=== PATIENT | male | born 1960 | race Caucasian/White ===

== ENCOUNTER 2019-11-26 17:26 | Observation (INO) | payer BC, SELFPAY ==
--- NOTE | ~2019-11-26 | CT_ITS ---
EXAMINATION: CT abdomen pelvis wo con EXAM DATE: 11/26/2019 18:05 INDICATION: Right lower quadrant pain. TECHNIQUE: Spiral CT of the abdomen and pelvis was performed without contrast. Axial, coronal and s agittal images were reviewed. The dose-length product (DLP) for this examination was 734.46 mGy-cm. The exposure was tailored according to patient size (auto mA exposure control), and iterative recons truction (ASIR) was used as additional dose reduction technique. Comparison is made to prior examinat ion from 04/13/2009. FINDINGS: The liver, spleen, adrenal glands and pancreas are unremarkable. Gallbladder is unremarkab le. No biliary obstruction. There is a 4 mm stone at the right ureterovesicular junction with mild h ydroureteronephrosis. There is perinephric fluid and fat stranding. Potentially could indicate calyce al rupture. No other genitourinary calcifications. There is moderate prostatomegaly. The bladder is unremarkable. There is no retroperitoneal or pelvic lymphadenopathy. Moderate sized right, small t o moderate-sized left inguinal fat-containing hernias. The appendix is normal. There is gastric cardial diverticulum. There is extensive sigmoid, moderate descending colonic diverticulosis. There is no adjacent inflammatory change to suggest diverticuliti s. No free intraperitoneal gas. The heart is normal in size. There are no pericardial or pleural effusions. The lung bases are unremarkable. There are no osteoblastic or osteolytic lesions identif ied. Mild to moderate chronic compression fracture superior endplate of L4. IMPRESSION: 1. Right UVJ 4 mm stone, mild hydronephrosis. Perinephric fluid could indicate calyceal rupture. 2. Inguinal fat-containing hernias. 3. Colonic diverticulosis. Reviewed, dictated and finalized at location A.
--- NOTE | ~2019-11-26 | XR_ITS ---
EXAMINATION: XR retrograde pyelo w/stent RT DATE: 11/27/2019 08:05 INDICATION: Right renal stone removal and retrograde ureteral stent placement. TECHNIQUE: 5 fluoroscopic spot images of the abdomen and pelvis were obtained during procedure perfor med by Dr. Louise. Radiologist was not present for the imaging or procedure. The amount of fluoroscopy t hayley used during this procedure was 0.2 minutes. 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 Subsequent images demonstrate a wire advanced into the right renal collecting system and retrograde contrast injection into the right ureter and collecting syste m demonstrating mild right hydroureteronephrosis. Final images demonstrate advancement of a stent wit h proximal tip in the right renal pelvis and with distal loop in the bladder. The right ureteral ston e is not visualized on the final images and has likely been extracted. IMPRESSION: 1. Fluoroscopy utilized during reported right renal stone extraction and placement of a right interna l ureteral stent which is in expected position. See procedure note for further detail. Reviewed, dictated and finalized at location A. IMPRESSION: 1. Fluoroscopy utilized during reported right renal stone extraction and placem ent of a right internal ureteral stent which is in expected position. See proce dure note for further detail.
[2019-11-26 17:33] VITALS: BP 191/115; PULSE 69; RESP 20; TEMP 36.6; O2SAT 99
[2019-11-26 17:46] LABS: Basophils Percent Auto 0.2 % (0.2-1.2); Eosinophils Percent Auto 0.1 % (0-4.4); Hematocrit 45.3 % (42.0-52.0); Hemoglobin 15.8 g/dL (14.0-18.0); Immature Granulocyte Absolute 0.06 K/mm3 (0.00-0.031); Immature Granulocyte Percent A 0.4 % (0-0.5); Lymphocytes Absolute Auto 1.32 K/mm3 (0.9-3.2); Lymphocytes Percent Auto 8.2 % (18.3-44.2); Mean Corpuscular HGB Conc 34.9 g/dl (32-36); Mean Platelet Volume 10.1 fl (7.4-10.4); Monocytes Absolute Auto 0.8 K/mm3 (0.1-0.6); Monocytes Percent Auto 4.8 % (2.6-8.5); Neutrophils Percent Auto 86.3 % (45.5-73.1); Platelet Count Result 238 k/mm3 (150-375); Red Blood Count 5.27 M/mm3 (4.6-6.20); Red Cell Distribution Width 12.7 % (11.5-14.5); White Blood Count 16.2 K/mm3 (4.5-10.0)
[2019-11-26] MEDS: MORPHINE SULFATE 4 MG/ML INJ IV PUSH (17:49)
[2019-11-26] MEDS: ONDANSETRON INJ 4 MG/2 ML VIAL IV PUSH (17:49)
[2019-11-26] MEDS: SODIUM CHLORIDE 0.9% IV 1,000 ML 999 ML IV CONT (17:50)
--- NOTE | 2019-11-26 17:54 | ED.ABDPAIN ---
HPI - Abdominal Pain General Chief Complaint: Abdominal Pain Stated Complaint: ABD PAIN X TD Time Seen by Provider: 11/26/19 17:41 History of Present Illness HPI narrative: Patient is a 59-year-old male who presents ER with sudden onset right sided abdominal pain. Began 2 hours prior to arrival. Sharp and radiating into his groin. Associated with urinary frequency and urgency. No hematuria dysuria. No history of AAA/kidney stones/gallstones. No nausea but no vomiting. No aggravating or alleviating factors. Related Data Home Medications Medication Instructions Recorded Confirmed No Home Medications 11/26/19 11/26/19 Allergies Allergy/AdvReac Type Severity Reaction Status Date / Time diclofenac AdvReac Mild stomach Verified 11/26/19 17:39 upset Review of Systems Review of Systems: All systems reviewed & are unremarkable except as noted in HPI and below Constitutional: Constitutional: Denies chills, Denies fever(s) and Denies weakness ENT: Denies nasal congestion and Denies sore throat Cardiovascular: Cardiovascular: Denies chest pain and Denies radiating jaw, neck or arm pain Gastrointestinal: Gastrointestinal: Reports abdominal pain, Denies diarrhea, Denies nausea and Denies vomiting Genitourinary: Genitourinary: Denies hematuria, Denies oliguria, Denies dysuria and Reports urinary frequency PMF Past Medical History Medical History (Updated 11/26/19 @ 18:29 by Terrence Neal MD) Arthritis of lumbar spine Spinal stenosis, unspecified region other than cervical Surgical History Surgical History (Updated 11/26/19 @ 17:55 by Terrence Neal MD) History of back surgery Social History Social History Smoking status: Never smoker Alcohol intake: current Gender identity (if verbalized by the patient): Male Exam Narrative: Exam Narrative: GENERAL: Uncomfortable-appearing, well-nourished, and in moderate distress. HEAD: Normocephalic, atraumatic. ENT: Mucous membranes moist. CHEST: Clear to auscultation. No respiratory distress. HEART: Regular rate and rhythm. Normal peripheral pulses. ABDOMEN: Soft, tender palpation right upper and right lower quadrants, no pulsatile mass, nondistended, normal active bowel sounds. EXTREMITIES: Normal range of motion. No edema. SKIN: Warm, dry, no rash. NEURO: lert and oriented x3. Course Reevaluation(s) Reevaluation #1: Patient still having pain after morphine and is panting. Will give Toradol for pain control. Patient has been informed of results. Date: 11/26/19 Time: 18:30 Reevaluation #2: Admit to hospitalist. Spoke with Dr. Louise with urology. NPO, strain all urine, hydrate, pain control. Date: 11/26/19 Time: 19:11 Vital Signs Vital signs: Vital Signs Temperature 97.9 F 11/26/19 17:33 Pulse Rate 69 11/26/19 17:33 Respiratory Rate 20 11/26/19 17:33 Blood Pressure 191/115 H 11/26/19 17:33 Pulse Oximetry 99 11/26/19 17:33 Temperature 97.9 F 11/26/19 17:33 Pulse Rate 69 11/26/19 17:33 Respiratory Rate 20 11/26/19 17:33 Blood Pressure 191/115 H 11/26/19 17:33 Pulse Oximetry 99 11/26/19 17:33 MDM - Abdominal Pain Lab Data Result diagrams: 11/26/19 17:40 11/26/19 17:40 Labs: Lab Results 11/26/19 11/26/19 11/26/19 Range/Units 17:40 17:40 18:48 WBC 16.2 H (4.5-10.0) K/mm3 RBC 5.27 (4.6-6.20) M/mm3 Hgb 15.8 (14.0-18.0) g/dL Hct 45.3 (42.0-52.0) % MCV 86.0 (80-100) fl MCH 30.0 (26-34) pg MCHC 34.9 (32-36) g/dl RDW 12.7 (11.5-14.5) % Plt Count 238 (150-375) k/mm3 MPV 10.1 (7.4-10.4) fl Immature Gran % (Auto) 0.4 (0-0.5) % Neut % (Auto) 86.3 H (45.5-73.1) % Lymph % (Auto) 8.2 L (18.3-44.2) % [place] % (Auto) 4.8 (2.6-8.5) % Eos % (Auto) 0.1 (0-4.4) % Baso % (Auto) 0.2 (0.2-1.2) % Lymph # (Auto) 1.32 (0.9-3.2) K/mm3 [place] # (
[2019-11-26 17:59] LABS: Alanine Aminotransferase 25 U/L (4-50); Albumin Level 4.7 g/dL (3.5-5.1); Alkaline Phosphatase 61 U/L (38-126); Anion Gap 10 mmol/L (8-16); Aspartate Amino Transferase 27 U/L (17-59); Bilirubin,Total 0.5 mg/dL (0.2-1.3); Blood Urea Nitrogen 22 mg/dL (9-20); Calcium 9.3 mg/dL (8.4-10.2); Carbon Dioxide 24 mmol/L (22-30); Chloride 104 mmol/L (98-107); Estimated CRCL calculation 57 ml/min; Estimated Glomerular Filt Rate 56; Glucose 134 mg/dL (75-110); Lipase 145 U/L (23-300); Potassium 3.9 mmol/L (3.4-5.0); Sodium 138 mmol/L (137-145)
[2019-11-26] MEDS: KETOROLAC 30 MG/ML VIAL (*BKC) IV PUSH (18:32)
[2019-11-26 18:59] LABS: Add Urine Microscopic? YES; Appearance Urine Clear (Clear); Bilirubin Urine Negative (Negative); Blood Urine 3+ (Negative); Color Urine Straw (Yellow); Glucose Urine UA Negative (Negative); Ketones Urine Trace mg/dL (Negative); Leukocyte Esterase Ur Negative LEU/UL (Negative); Mucus Urine Rare /lpf; Nitrate Urine Negative (Negative); Protein Urine Negative (Negative); Specific Grav Ur 1.014 (1.001-1.035); Urobilinogen Urine Negative mg/dL (<2.0); WBC Urine 0-3 /hpf
[2019-11-26 19:00] VITALS: BP 155/92; PULSE 77; RESP 19; O2SAT 99
[2019-11-26 20:16] VITALS: BP 166/91; PULSE 77; RESP 15; O2SAT 99
[2019-11-26 20:20] VITALS: BP 161/87; PULSE 72; RESP 16; TEMP 37; O2SAT 100; BMI 28.6
--- NOTE | 2019-11-26 20:41 | WPDURCON ---
Assessment and Plan Assessment and plan (1) Ureterolithiasis: Onset Date: ~11/26/19 Code(s): N20.1 - Calculus of ureter Status: Acute Assessment and Plan: Distal 4mm right UVJ stone, admitted for pain control, uninfected. PLAN: -Admitted to hospitalist for IVF, Pain control, straining of urine -Denies passage since admission -NPO at Midnight -Added on for OR today (11/27/2019) for Cystoscopy, Right retrograde pyelogram, ureteroscopy, holmium laser lithotripsy, ureteral stent (if does not pass stone before then) Urology Consult Note HPI Date Seen: 11/27/19 Requesting Physician: Angella Malcolm DO Primary Care Provider: Tano Schmitz MD Consult Narrative Narrative: Tano Khan is a 59 year old male who presented to the ER with a few hours of right flank pain. 01/27. No fevers. CT AP shows a single, 4mm, right distal ureteral stone. Cr 1.3, UA uninfected, WBC 16k. He is admitted for pain control. Review of Systems Review of Systems: All systems reviewed & are unremarkable except as noted in HPI and below PMFSH Past Medical History Medical History (Updated 11/27/19 @ 07:08 by Vikas Robles DO) Arthritis of lumbar spine Bilateral cataracts early/maturing cataracts Carpal tunnel syndrome, left Inguinal hernia bilateral fat containing inguinal hernias noted on imaging 11/26/2019 Renal stones Ureterolithiasis (~11/26/19) Surgical History Surgical History (Updated 11/27/19 @ 06:05 by Angella Malcolm DO) H/O cervical spine surgery C4 through C7 ACDF fall 2012 due to severe cervical stenosis from disc bulge at C4-C5 Family History Family History (Updated 11/27/19 @ 06:07 by Angella Malcolm DO) Mother Alzheimers disease Father Malignant neoplasm of prostate Social History Social History (Updated 11/27/19 @ 06:42 by Angella Malcolm DO) Social History: Primary care physician: Dr. Tano Schmitz Smoking status: Never smoker Alcohol intake: current Alcohol use details: the patient drinks 1 alcoholic beverage a month on average. Substance use: never Living arrangements: with family Additional living arrangements comments: He lives with his of 34 years. and 1 adult daughter who is scheduled to be admitted to deliver twins in a couple of days. 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 Gender identity (if verbalized by the patient): Male Spiritual care concerns: No Meds Home Medications and Allergies Home Medications Medication Instructions Recorded Confirmed Type No Home Medications 11/26/19 11/26/19 History Allergies Allergy/AdvReac Type Severity Reaction Status Date / Time diclofenac AdvReac Mild stomach Verified 11/26/19 17:39 upset Vital Signs Vital Signs - 24 hr 11/26/19 17:33 11/26/19 19:00 11/26/19 20:16 Temperature 36.6 C Pulse Rate 69 77 77 Respiratory Rate 20 19 15 Blood Pressure 191/115 H 155/92 H 166/91 H Pulse Oximetry 99 99 99 Exam Const: General: no acute distress Eyes: General: appearance normal, both eyes and all related structures Resp: Effort & Inspection: normal respiratory effort Cardio: Rate: regular rate Neuro: Speech: normal speech Extrem: General: normal to inspection Psych: Speech and movement: Normal speech and movement present Affect: normal affect Results Labs CBC & Chem 7: 11/26/19 17:40 11/26/19 17:40 Labs: Short CBC 11/26/19 Range/Units 17:40 WBC 16.2 H (4.5-10.0) K/mm3 Hgb 15.8 (14.0-18.0) g/dL Hct 45.3 (42.0-52.0) % Plt Count 238 (150-375) k/mm3 BMP 11/26/19 17:40 Sodium 138 Potassium 3.9 Chloride 104 Carbon Dioxide 24 BUN 22 H Creatinine 1.30 Glucose 134 H Calcium 9.3 Liver Function 11/26/19 Range/Units 17:40 Total Bilirubin
--- NOTE | 2019-11-26 22:29 | ADMGEN ---
This patient, Tano Khan, was admitted to 3 Med Surg Room 302-01. Patient/family oriented to hospital policies and general routines including ID bracelet, bed and alarms, visiting hours, pain management, procedures, bathroom and other care routines, personal items, smoking policy, room service/diet, and visiting hours. Valuables list has been completed. Information on how to activate the Rapid Response Team has been discussed. Patient/Family are encouraged to report perceived risks to care and to ask questions if they do not understand what they are told or what they should do.
[2019-11-26] MEDS: SODIUM CHLORIDE 0.9% IV 1,000 ML 125 ML IV CONT (22:55)
[2019-11-27] VITALS (9 sets, daily range): BP systolic 115–158; BP diastolic 66–97; PULSE 54–70; RESP 12–18; TEMP 36.2–37; O2SAT 98–100
--- NOTE | 2019-11-27 05:57 | PM.IMHP ---
H&P: HPI History of Present Illness Date/Time: 11/27/19 05:57 Chief complaint: ureterolithiasis Narrative: Tano Khan is a 59 year old male with a relatively unremarkable past medical history who presented to the ER with sudden onset of right-sided abdominal pain 2 hours prior to arrival. the pain was initially generalized across his abdomen but then became more isolated to the right side and radiated into his groin. The pain was initially 10/10 intensity. He received a dose of morphine in the ER without relief in his pain improved significantly after Toradol. He had increased urinary frequency and urgency. he was having some dysuria prior to midnight but this has since resolved. He denies having any hematuria. He had not noticed any eliciting or relieving factors. However he reports that his pain is improved significantly and is only very minor now. He has not had any fevers or chills. He denies any nausea or vomiting. He does not have a history of prior kidney stones. Review of Systems Review of Systems: Narrative: 10 systems were reviewed with pertinent positives and negatives per HPI. Except as documented in the HPI, all other systems were reviewed and are negative. [facility] Past Medical History Medical History (Updated 11/27/19 @ 06:37 by Angella Malcolm DO) Arthritis of lumbar spine Bilateral cataracts early/maturing cataracts Carpal tunnel syndrome, left Inguinal hernia bilateral fat containing inguinal hernias noted on imaging 11/26/2019 Ureterolithiasis (~11/26/19) Surgical History Surgical History (Updated 11/27/19 @ 06:05 by Angella Malcolm DO) H/O cervical spine surgery C4 through C7 ACDF fall 2012 due to severe cervical stenosis from disc bulge at C4-C5 Family History Family History (Updated 11/27/19 @ 06:07 by Angella Malcolm DO) Mother Alzheimers disease Father Malignant neoplasm of prostate Social History Social History (Updated 11/27/19 @ 06:42 by Angella Malcolm DO) Social History: Primary care physician: Dr. Tano Schmitz Smoking status: Never smoker Alcohol intake: current Alcohol use details: the patient drinks 1 alcoholic beverage a month on average. Substance use: never Living arrangements: with family Additional living arrangements comments: He lives with his of 34 years. and 1 adult daughter who is scheduled to be admitted to deliver twins in a couple of days. 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 Gender identity (if verbalized by the patient): Male Spiritual care concerns: No Meds Home Medications and Allergies Home Medications Medication Instructions Recorded Confirmed Type No Home Medications 11/26/19 11/26/19 History Allergies Allergy/AdvReac Type Severity Reaction Status Date / Time diclofenac AdvReac Mild stomach Verified 11/26/19 17:39 upset Vital Signs Vital Signs - 24 hr 11/26/19 17:33 11/26/19 19:00 11/26/19 20:16 Temperature 97.9 F Pulse Rate 69 77 77 Respiratory Rate 20 19 15 Blood Pressure 191/115 H 155/92 H 166/91 H Pulse Oximetry 99 99 99 11/26/19 20:20 Temperature 98.6 F Pulse Rate 72 Respiratory Rate 16 Blood Pressure 161/87 H Pulse Oximetry 100 Exam Narrative: Exam Narrative: PHYSICAL EXAM: WEIGHT 93.2 kg BMI 28.7 General: No acute distress, well-developed well-nourished, appears stated age HEENT: mucous membranes are moist, no oral pharyngeal erythema, no scleral icterus, pupils are equal and reactive Respiratory: clear to auscultation bilaterally, no increased work of breathing Cardiovascular: normal S1-S2, no murmurs, regular rate and rhythm Gastrointestinal: soft, nontender, nondistended, positive bowel sounds Skin: no jaundice, tanned Musculoskeletal: moves all extremities equally, no clubbing cyanosis or edema Neurolo
--- NOTE | 2019-11-27 07:08 | WPDANESEPPF ---
Anes - Initial Pre Proc Eval Procedure: Operation Date: 11/27/19 07:30 Proposed Procedures p Cysto, Right RPG, Ureteroscopy, Laser Lithotripsy, Stone Ext, Stent Placement - Trent Louise MD Date/Time: 11/27/19 07:08 Surgeon: Ange Erickson PA-C Pre Op Diagnosis: ureterolithiasis Patient Data Age: 59 Gender: M Height: 1.8 m Weight: 93.2 kg Last Vital Signs Temp 37.0 C 11/27/19 06:00 Pulse 66 11/27/19 06:00 Resp 16 11/27/19 06:00 BP 158/97 H 11/27/19 06:00 Pulse Ox 98 11/27/19 06:00 Allergies Allergy/AdvReac Type Severity Reaction Status Date / Time diclofenac AdvReac Mild stomach Verified 11/26/19 17:39 upset Home Medications Medication Instructions Recorded Confirmed Type No Home Medications 11/26/19 11/26/19 History Laboratory Tests 11/26/19 11/26/19 11/26/19 17:40 17:40 18:48 WBC 16.2 K/mm3 H K/mm3 (4.5-10.0) RBC 5.27 M/mm3 M/mm3 (4.6-6.20) Hgb 15.8 g/dL g/dL (14.0-18.0) Hct 45.3 % % (42.0-52.0) MCV 86.0 fl fl (80-100) MCH 30.0 pg pg (26-34) MCHC 34.9 g/dl g/dl (32-36) RDW 12.7 % % (11.5-14.5) Plt Count 238 k/mm3 k/mm3 (150-375) MPV 10.1 fl fl (7.4-10.4) Immature Gran % (Auto) 0.4 % % (0-0.5) Neut % (Auto) 86.3 % H % (45.5-73.1) Lymph % (Auto) 8.2 % L % (18.3-44.2) [place] % (Auto) 4.8 % % (2.6-8.5) Eos % (Auto) 0.1 % % (0-4.4) Baso % (Auto) 0.2 % % (0.2-1.2) Lymph # (Auto) 1.32 K/mm3 K/mm3 (0.9-3.2) [place] # (Auto) 0.8 K/mm3 H K/mm3 (0.1-0.6) Eos # (Auto) 0.0 K/mm3 K/mm3 (0-0.3) Baso # (Auto) 0.0 K/mm3 K/mm3 (0.0-0.1) Abs Immat Gran (auto) 0.06 K/mm3 H K/mm3 (0.00-0.031) Absolute Neuts (auto) 14.0 K/mm3 H K/mm3 (1.3-6.7) Absolute Nucleated RBC 0.0 K/mm3 K/mm3 (0.0-0.012) Nucleated RBC % 0.0 % % (0.0-0.2) Sodium 138 mmol/L mmol/L (137-145) Potassium 3.9 mmol/L mmol/L (3.4-5.0) Chloride 104 mmol/L mmol/L (98-107) Carbon Dioxide 24 mmol/L mmol/L (22-30) Anion Gap 10 mmol/L mmol/L (8-16) BUN 22 mg/dL H mg/dL (9-20) Creatinine 1.30 mg/dL mg/dL (0.7-1.3) Estim Creat Clear Calc 57 ml/min ml/min Estimated GFR 56 L (59 - ) Glucose 134 mg/dL H mg/dL (75-110) Calcium 9.3 mg/dL mg/dL (8.4-10.2) Total Bilirubin 0.5 mg/dL mg/dL (0.2-1.3) AST 27 U/L U/L (17-59) ALT 25 U/L U/L (4-50) Alkaline Phosphatase 61 U/L U/L (38-126) Total Protein 8.0 g/dL g/dL (6.3-8.2) Albumin 4.7 g/dL g/dL (3.5-5.1) Lipase 145 U/L U/L (23-300) Urine Color Straw (Yellow) Urine Appearance Clear (Clear) Urine pH 6.0 (5.0-9.0) Ur Specific [place] 1.014 (1.001-1.035) Urine Protein Negative mg/dL mg/dL (Negative) Urine Glucose (UA) Negative mg/dL mg/dL (Negative) Urine Ketones Trace mg/dL mg/dL (Negative) Ur Blood (Man) 3+ H (Negative) Urine Nitrate Negative (Negative) Urine Bilirubin Negative (Negative) Urine Urobilinogen Negative mg/dL mg/dL (<2.0) Leukocyte Esterase Rfl Negative MAREK/UL MAREK/UL (Negative) Urine RBC 11-20 /hpf H /hpf (0-2) Urine WBC 0-3 /hpf /hpf Urine Mucus Rare /lpf /lpf Patient hx anesthesia problems: none Family hx anesthesia problems: none [facility] Past Medical History Medical History (Updated 11/27/19 @ 07:08 by Vikas Robles DO) Arthritis of lumbar spine Bilateral cataracts early/maturing cataracts Carpal tunnel syndrome, left Inguinal hernia bilateral fat containing inguinal hernias noted on imagin
--- NOTE | 2019-11-27 07:25 | P.OP_ITS ---
Procedure Note - Detailed Date of procedure: 11/27/19 Pre-op diagnosis: ureterolithiasis Surgeon: PREOP DIAGNOSIS: N20.1 (Right ureteral calculus) POSTOP DIAGNOSIS: Same PROCEDURES PERFORMED: #1) Right ureteroscopy, basket extraction of stone #2) Cystoscopy, Right Ureteral Stent Placement, Retrograde Pyelogram #3) Radiologic supervision and interpretation OPERATIVE DETAILS: Prior to the operation and informed consent was obtained. The patient was brought back to the operative suite and a detail timeout was performed. General anesthesia was induced without complication. The patient was administered IV antibiotics in the prophylactic form. The patient was positioned in the dorsal lithotomy position with close attention to all pressure points and was prepped and draped in sterile fashion. We began the case using a rigid cystoscope to gain access into the bladder under direct visualization per urethra. Cystoscopy was unremarkable. We turned our attention to the right ureteral orifice and cannulated it using an 8/10 ureteral dilator and sensor wire. We radiologically confirmed the wire to pass up into the renal pelvis before advancing the ureteral dilator into the distal right ureter over our wire. Using a [place] semirigid ureteroscope I was able to traverse into the right ureter next to the wire and identified the stone. It was 4mm and distally located. The stone was identified and basket extracted using a zero-tipped nitinol basket. This was sent for chemical analysis. We performed a retrograde pyelogram through the scope to keep our wire in place. With our wire in place, we placed a 4.8Fr 22-30Fr double-J ureteral stent. We did not leave a string attached. We confirmed excellent position fluoroscopically. The patient's bladder was emptied at the conclusion of the case and they tolerated the procedure well. PLAN: -PACU, floor -Urology ok with d/c home today if cleared by hospitalist service -Urology Clinic will call to arrange office cystoscopy, stent removal, with one of my partners who has office hours at [place] This note was created with the assistance of voice-recognition software and may contain phonetic errors. Trent Louise MD
[2019-11-27 07:37] LABS: Hematocrit 42.4 % (42.0-52.0); Hemoglobin 14.6 g/dL (14.0-18.0); Mean Corpuscular HGB Conc 34.4 g/dl (32-36); Mean Corpuscular Hemoglobin 29.7 pg (26-34); Mean Corpuscular Volume 86.2 fl (80-100); Mean Platelet Volume 10.4 fl (7.4-10.4); Platelet Count Result 206 k/mm3 (150-375); Red Blood Count 4.92 M/mm3 (4.6-6.20); Red Cell Distribution Width 12.9 % (11.5-14.5); White Blood Count 10.5 K/mm3 (4.5-10.0)
[2019-11-27 07:49] LABS: Anion Gap 8 mmol/L (8-16); Blood Urea Nitrogen 17 mg/dL (9-20); Calcium 8.3 mg/dL (8.4-10.2); Carbon Dioxide 24 mmol/L (22-30); Chloride 106 mmol/L (98-107); Estimated CRCL calculation 53 ml/min; Estimated Glomerular Filt Rate 52; Glucose 102 mg/dL (75-110); Potassium 3.6 mmol/L (3.4-5.0); Sodium 138 mmol/L (137-145)
[2019-11-27] MEDS: ceFAZolin SODIUM 1 GM VIAL 2 GM IV PUSH (07:50)
[2019-11-27] MEDS: KETOROLAC 15 MG/ML VIAL (*BKC) IV PUSH (07:57)
[2019-11-27] MEDS: LACTATED RINGERS 1,000 ML 30 ML IV CONT (08:07)
--- NOTE | 2019-11-27 08:31 | PC.NURSE ---
To OR per bed, IV saline locked.
[2019-11-27] MEDS: LIDOCAINE HCL 2% GEL UROJET 10 ML PKG MUCOUS MEM (09:36)
--- NOTE | 2019-11-27 09:37 | PC.NURSE ---
Returned from OR per bed. Report received from Vikas.
[2019-11-27] MEDS: SODIUM CHLORIDE 0.9% IV 1,000 ML 125 ML IV CONT (10:47)
--- NOTE | 2019-11-27 11:55 | PM.DS ---
DS: Admitting Diagnosis Admitting Diagnosis Admitting Diagnosis: Calculus of ureter DS: Discharge Diagnosis Discharge Diagnosis (1) Ureterolithiasis: Onset Date: ~11/26/19 Code(s): N20.1 - Calculus of ureter Status: Acute Assessment and Plan: 4 mm obstructing stone with mild hydro nephrosis and perinephric fluid. Pt underwent cystoscopy and right urteral stent placement. after this procedure the patient had no pain and was ready for discharge. He is going to follow-up with urology to get the stent removed outpatient. No antibiotics were required, UA did not look suspicious for UTI and urology agreed. Patient educated about the worrisome signs and symptoms to come back to emergency room for was discharged in stable condition DS: Summary Hospital Course Reason for hospitalization: renal calculus Hospital Course: patient is 59-year-old male who presented emergency room for severe flank /abdominal pain found to have a right 4 mm kidney stone. He underwent a cystoscopy and stent placement and did well. Creatinine 1.4 at discharge and white blood cell count improved to 10.5. He was sent home with pain medications and tamsulosin. He is going to follow up with Urology outpatient Status at Discharge Functional status at discharge: independent ambulation Overall status at discharge: patient is back to baseline Time Spent with Patient Time attestation: Total time spent providing and/or coordinating discharge services: Time spent: Less than 30 minutes Specific discharge activities: 29 min Exam Narrative: Exam Narrative: General: Well developed well nourished patient in NAD HEENT: normocephalic Neck: supple Neuro: Alert and oriented x4 CV:RRR Resp:CTA Abd: Soft, non distended. No pain to palpation. Positive bowel sounds. no CVA tenderness Extremities: No swelling, erythema, or pain to palpation. DS: Data Data Completed and Pending Pending studies at discharge: Pending at discharge 11/27/19 07:53 Surgical [PTH] Routine Labs on day of discharge: Labs from last 24 hours 11/27/19 11/27/19 11/26/19 07:14 07:14 18:48 WBC 10.5 H RBC 4.92 Hgb 14.6 Hct 42.4 MCV 86.2 MCH 29.7 MCHC 34.4 RDW 12.9 Plt Count 206 MPV 10.4 Immature Gran % (Auto) Neut % (Auto) Lymph % (Auto) [place] % (Auto) Eos % (Auto) Baso % (Auto) Lymph # (Auto) [place] # (Auto) Eos # (Auto) Baso # (Auto) Abs Immat Gran (auto) Absolute Neuts (auto) Absolute Nucleated RBC Nucleated RBC % Sodium 138 Potassium 3.6 Chloride 106 Carbon Dioxide 24 Anion Gap 8 BUN 17 Creatinine 1.40 H Estim Creat Clear Calc 53 Estimated GFR 52 L Glucose 102 Calcium 8.3 L Total Bilirubin AST ALT Alkaline Phosphatase Total Protein Albumin Lipase Urine Color Straw Urine Appearance Clear Urine pH 6.0 Ur Specific [place] 1.014 Urine Protein Negative Urine Glucose (UA) Negative Urine Ketones Trace Ur Blood (Man) 3+ H Urine Nitrate Negative Urine Bilirubin Negative Urine Urobilinogen Negative Leukocyte Esterase Rfl Negative Urine RBC 11-20 H Urine WBC 0-3 Urine Mucus Rare 11/26/19 11/26/19 17:40 17:40 WBC 16.2 H RBC 5.27 Hgb 15.8 Hct 45.3 MCV 86.0 MCH 30.0 MCHC 34.9 RDW 12.7 Plt Count 238 MPV 10.1 Immature Gran % (Auto) 0.4 Neut % (Auto) 86.3 H Lymph % (Auto) 8.2 L [place] % (Auto) 4.8 Eos % (Auto) 0.1 Baso % (Auto) 0.2 Lymph # (Auto) 1.32 [place] # (Auto) 0.8 H Eos # (Auto) 0.0 Baso # (Auto) 0.0 Abs Immat Gran (auto) 0.06 H Absolute Neuts (auto) 14.0 H Absolute Nucleated RBC 0.0 Nucleated RBC % 0.0 Sodium 138 Potassium 3.9 Chloride 104 Carbon Dioxide 24 Anion Gap 10 BUN 22 H Creatinine 1.30 Estim Creat Clear Calc 57 Estimated GFR 56 L Glucose 134 H Calcium 9.3 Total Bilirubi
== END 2019-11-27 13:00 | disposition home or self-care (01) ==
LOC: ANHED 19:11 → ANH3MEDSUR 19:52
PROVIDERS: Physician Assistant; Urology; Admitting Provider Internal Medicine; Emergency Provider Emergency Medicine; PCP Family Medicine; Visit Provider Internal Medicine
PROC: (CPT 52352; principal; 2019-11-27 07:30)
DX: N20.1 Calculus of ureter (principal); K40.90 Unilateral inguinal hernia, without obstruction or gangrene, not specified as recurrent
CPT/HCPCS: 52332; 36415; 74176; 74420; 80048; 80053; 81001; 82365; 83690; 85025; 85027; 88300; 96361; 96365; 96375; 96376; 99285; A9270; C1769; C2617; G0378; J0131; J0690; J0696; J1100; J1885; J2250; J2270; J2405; J2704; J3010; J7030; J7120; Q9966

== ENCOUNTER 2021-02-27 08:58 | Outpatient (CLI) | payer BC, SELFPAY ==
[2021-02-27 09:40] VITALS: BP 147/84; PULSE 69; RESP 30; O2SAT 100
== END 2021-02-27 08:59 | disposition home or self-care (01) ==
PROVIDERS: PCP Family Medicine; Visit Provider Family Medicine
DX: C61 Malignant neoplasm of prostate (principal); Z01.818 Encounter for other preprocedural examination; I45.10 Unspecified right bundle-branch block
CPT/HCPCS: 99199

== ENCOUNTER 2021-02-27 09:54 | Emergency (ER) | payer BC, SELFPAY ==
--- NOTE | ~2021-02-27 | XR_ITS ---
EXAMINATION: XR chest 2V DATE: 02/27/2021 10:40 INDICATION: Transient alteration of awareness, history of bladder cancer TECHNIQUE: AP and lateral views of the chest are obtained. COMPARISON: 04/13/2009 FINDINGS: The lungs are free of acute opacities. There is no pleural effusion or pneumothorax. The ca rdiomediastinal silhouette is normal. There is moderate thoracic spondylosis. IMPRESSION: 1. No acute cardiopulmonary abnormality. Reviewed, dictated and finalized at location B. SONIC ENGINEER
--- NOTE | ~2021-02-27 | CT_ITS ---
EXAMINATION: CT brain wo con DATE: 02/27/2021 10:33 INDICATION: Syncope. TECHNIQUE: Computed tomography (CT) of the head was performed without intravenous contrast. The mA wa s adjusted according to patient size. Iterative reconstruction technique was employed. The dose-lengt h product was 605.33 mGy-cm. COMPARISON: Head CT 04/13/2009 FINDINGS: There is no intracranial hemorrhage, acute infarction, or abnormal intracranial mass lesion . The ventricles are normal in size. There is mild mucosal thickening in the paranasal sinuses. The m astoid air cells are normal. The orbits are normal. IMPRESSION: 1. Normal brain. Reviewed, dictated and finalized at location A. ING UP MAN IMPRESSION: 1. Normal brain.
[2021-02-27 09:59] VITALS: BP 124/80; PULSE 62; RESP 14; TEMP 36.6; O2SAT 100
--- NOTE | 2021-02-27 10:03 | ECG_ITS ---
Measurements Intervals [place] Rate: 58 P: 32 MI: 152 QRS: -58 QRSD: 109 T: 118 QT: 414 QTc: 407 Interpretive Statements SINUS BRADYCARDIA INCOMPLETE RIGHT BUNDLE BRANCH BLOCK LEFT ANTERIOR FASCICULAR BLOCK T WAVE ABNORMALITY IN LAT/HIGH LAT LEADS- CONSIDER ISCHEMIA BASELINE ARTIFACT- II, III, AVR, AVF, V3-V6 ABNORMAL ECG Electronically Signed On 02-27-2021 10:13:09 INDUSTRIAL AUTOMATION ENGINEER by Rishi Martinez D.O.
[2021-02-27 10:06] LABS: Glucose Point of Care 102 mg/dl (65-105)
--- NOTE | 2021-02-27 10:22 | ED.SYNCOPE ---
HPI - Syncope General Chief Complaint: Syncope <Ena Greenwood PA-C - Last Filed: 02/27/21 12:30> Stated Complaint: Syncope <PABLO Jones Last Filed: 02/27/21 12:30> Time Seen by Provider: 02/27/21 10:13 <PABLO Jones Last Filed: 02/27/21 12:30> Source: patient <PABLO Jones Last Filed: 02/27/21 12:30> Mode of arrival: wheelchair <PABLO Jones Last Filed: 02/27/21 12:30> Limitations: no limitations <PABLO Jones Last Filed: 02/27/21 12:30> History of Present Illness HPI narrative: This is a 60-year-old male that presents to the emergency department after syncopal episode today. Reports he has a prostatectomy scheduled for next Thursday due to localized prostate cancer. He failed the prescreening EKG so was scheduled for a Lexiscan stress test today. He had just had IV placed for this today. He started to feel very lightheaded and passed out. Reports he is unsure if he totally lost consciousness. Does report history of similar events in the past. Reports since he feels generally weak and has had intermittent paresthesias in his hands and feet. He did not hit his head. Denies fever, vision changes, vomiting, chest pain, shortness of breath, numbness, or weakness. <PABLO Jones Last Filed: 02/27/21 12:30> Related Data Home Medications: Home Medications Medication Instructions Recorded Confirmed No Home Medications 02/25/21 02/25/21 <PABLO Jones Last Filed: 02/27/21 12:30> Allergies/Adverse Reactions: Allergies Allergy/AdvReac Type Severity Reaction Status Date / Time diclofenac AdvReac Mild stomach Verified 02/25/21 11:39 upset <PABLO Jones Last Filed: 02/27/21 12:30> Review of Systems Review of Systems: CONSTITUTIONAL: Denies fever EYES: Denies visual changes CARDIOVASCULAR: Denies chest pain, or edema. RESPIRATORY: Denies dyspnea. GASTROINTESTINAL: Denies nausea, vomiting NEUROLOGIC: Denies headache, numbness, or weakness. <Ena Greenwood PA-C - Last Filed: 02/27/21 12:30> All systems reviewed & are unremarkable except as noted in HPI and below <Ena Greenwood PA-C - Last Filed: 02/27/21 12:30> [facility] Past Medical History Medical History: Medical History Arthritis of lumbar spine Bilateral cataracts early/maturing cataracts Bronchitis due to 2018-nCoV Carpal tunnel syndrome, left Inguinal hernia bilateral fat containing inguinal hernias noted on imaging 11/26/2019 Renal stones Ureterolithiasis (~11/26/19) <Ena Greenwood PA-C - Last Filed: 02/27/21 12:30> Surgical History Surgical History: Surgical History H/O cervical spine surgery C4 through C7 ACDF fall 2012 due to severe cervical stenosis from disc bulge at C4-C5 <Ena Greenwood PA-C - Last Filed: 02/27/21 12:30> Family History Family History: Family History Mother Alzheimers disease Father Malignant neoplasm of prostate <PABLO Jones Last Filed: 02/27/21 12:30> Social History Social History: Social History (Updated 02/25/21 @ 11:40 by TREMAYNE Garcia) Social History: Primary care physician: Dr. Tano Schmitz Alcohol intake: current Alcohol use details: the patient drinks 1 alcoholic beverage a month on average. Substance use: never Additional living arrangements comments: He lives with his of 34 years. and 1 adult daughter who is scheduled to be admitted to deliver twins in a couple of days. 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 Gender identity (if verbalized by the patient): Male Spiritual care concerns: No <Ena Greenwood PA-C - [place]
[2021-02-27 10:29] LABS: Basophils Absolute Auto 0.1 K/mm3 (0.0-0.1); Basophils Percent Auto 0.6 % (0.2-1.2); Eosinophils Absolute Auto 0.1 K/mm3 (0-0.3); Eosinophils Percent Auto 1.5 % (0-4.4); Hematocrit 44.7 % (42.0-52.0); Hemoglobin 15.8 g/dL (14.0-18.0); Immature Granulocyte Absolute 0.03 K/mm3 (0.00-0.031); Immature Granulocyte Percent A 0.4 % (0-0.5); Lymphocytes Absolute Auto 2.39 K/mm3 (0.9-3.2); Lymphocytes Percent Auto 29.6 % (18.3-44.2); Mean Corpuscular HGB Conc 35.3 g/dl (32-36); Mean Corpuscular Hemoglobin 30.3 pg (26-34); Mean Corpuscular Volume 85.6 fl (80-100); Monocytes Absolute Auto 0.9 K/mm3 (0.1-0.6); Monocytes Percent Auto 11.2 % (2.6-8.5); Neutrophils Absolute Auto 4.6 K/mm3 (1.3-6.7); Neutrophils Percent Auto 56.7 % (45.5-73.1); Platelet Count Result 215 k/mm3 (150-375); Red Blood Count 5.22 M/mm3 (4.6-6.20); Red Cell Distribution Width 12.7 % (11.5-14.5); White Blood Count 8.1 K/mm3 (4.5-10.0)
[2021-02-27] MEDS: SODIUM CHLORIDE 0.9% IV 1,000 ML 999 ML IV CONT (10:41)
[2021-02-27 10:42] LABS: Anion Gap 9 mmol/L (8-16); Blood Urea Nitrogen 19 mg/dL (9-20); Calcium 9.4 mg/dL (8.4-10.2); Carbon Dioxide 24 mmol/L (22-30); Chloride 104 mmol/L (98-107); Estimated CRCL calculation 72 ml/min; Estimated Glomerular Filt Rate > 60; Glucose 118 mg/dL (65-110); Potassium 4.1 mmol/L (3.4-5.0); Sodium 137 mmol/L (137-145)
[2021-02-27 10:57] LABS: Troponin I < 0.012 ng/mL (0.000-0.034)
[2021-02-27 11:11] LABS: INR 0.9; Partial Thromboplastin Time 22.8 SECONDS (22.3-36.8); Prothrombin Time 12.1 Seconds (11.1-14.7)
--- NOTE | 2021-02-27 11:21 | PC.NURSE ---
Pt received 1000 ml of normal saline, that was completed at 1121
[2021-02-27 11:45] VITALS: BP 130/76; PULSE 63
[2021-02-27 11:47] VITALS: BP 129/79; PULSE 63
[2021-02-27 11:49] VITALS: BP 125/86; PULSE 75
[2021-02-27 12:51] VITALS: BP 137/92; PULSE 70; RESP 16; O2SAT 96
--- NOTE | 2021-03-11 13:20 | PC.NURSE ---
LATE ENTRY This note is being entered to document information to the patient's record. The following information was omitted on [02/27/21], by [Sandrita Nicolas]. Ns stopped at 1140. 1000ml infused
== END 2021-02-27 12:54 | disposition home or self-care (01) ==
PROVIDERS: Physician Assistant; Emergency Provider Emergency Medicine; PCP Family Medicine
DX: R55 Syncope and collapse (principal); C61 Malignant neoplasm of prostate; H26.9 Unspecified cataract; Z86.16 Personal history of COVID-19; Z87.442 Personal history of urinary calculi; R00.1 Bradycardia, unspecified; I45.10 Unspecified right bundle-branch block; I45.2 Bifascicular block; R94.31 Abnormal electrocardiogram [ECG] [EKG]
CPT/HCPCS: 36415; 70450; 71046; 80048; 82948; 84484; 85025; 85610; 85730; 93005; 96360; 99284; J7030

== ENCOUNTER 2021-02-28 07:59 | Outpatient (CLI) | payer BC, SELFPAY ==
--- NOTE | 2021-02-28 | EST_ITS ---
Patient Info Name: Tano Khan Age: 60 years : 1960 Gender: Male Ht: 71 in Wt: 205 lbs BSA: 2.18 m2 HR: 56 bpm BP: 156 / 91 mmHg Heart Rhythm: Sinus Rhythm Exam Date: 02/28/2021 9:42 AM Exam Location: [facility] Stress Patient Status: Outpatient Admit Date: 02/28/2021 Staff Ordering Physician: Tano Schmitz MD Attending Provider: Tano Schmitz MD Exercise Technologist: Phyllis Merino CT Exercise Physician: Caitlyn Olmedo MD Exam Type: CA stress oscar w NM Study Info Indications Z01.810 - Encounter for preprocedural cardiovascular examination R94.31 - Abnormal electrocardiogram ECG EKG A regadenoson stress test was performed. Summary 1. No abnormal ST-T wave changes with lexiscan. 2. Nuclear test results to follow. Max Pred HR: 158 bpm Target HR: 134 bpm BP Response: Normal blood pressure response Termination Reason: Completed protocol Cardiac Symptoms: None Resting ECG Normal sinus rhythm.Left axis deviation. Resting ST/T wave changes. Stress ECG No abnormal ST/T wave changes with exercise. Arrhythmias None. Report Signatures
--- NOTE | ~2021-02-28 | NM_ITS ---
EXAMINATION: NM oscar stress w perfusion DATE: 02/28/2021 12:50 MANAGER SYSTEMS INDICATION: Right bundle branch block. Malignant neoplasm of the prostate. TECHNIQUE: Rest images were obtained following intravenous administration of mCi Tc99m tetrofosmin (M yoview). The patient was infused intravenously with Lexiscan (regadenoson). Then, mCi Tc99m tetrofosm in (Myoview) was administered intravenously, and stress images were obtained. Data was reconstructed into short axis and horizontal and vertical long axis SPECT images. Gated SPECT images were also obta ined. COMPARISON: None. FINDINGS: There is a small reversible defect of the lateral wall, consistent with impaired coronary f low reserve.. There is no segmental wall motion abnormality. Left ventricular ejection fraction mik sures 64%. IMPRESSION: 1. Small mild reversible perfusion abnormality of the lateral wall, consistent with impaired coronary flow reserve. 2. Normal left ventricular ejection fraction measuring 64%. Reviewed, dictated and finalized at location A. GER SYSTEMS
== END 2021-02-28 08:00 | disposition home or self-care (01) ==
LOC: ANHCARD 08:03
PROVIDERS: PCP Family Medicine; Visit Provider Family Medicine
DX: Z01.818 Encounter for other preprocedural examination (principal); C61 Malignant neoplasm of prostate; I45.10 Unspecified right bundle-branch block
CPT/HCPCS: 78452; 93017; A9502; J2785

== ENCOUNTER 2021-03-07 02:07 | Day surgery (SDC) | payer BC, SELFPAY ==
[2021-03-07] VITALS (11 sets, daily range): BP systolic 136–150; BP diastolic 76–94; PULSE 54–69; RESP 10–18; TEMP 35.9; O2SAT 95–100; BMI 27.8
[2021-03-07 09:32] LABS: Hematocrit 43.6 % (42.0-52.0); Hemoglobin 15.1 g/dL (14.0-18.0); Mean Corpuscular HGB Conc 34.6 g/dl (32-36); Mean Corpuscular Hemoglobin 29.6 pg (26-34); Mean Corpuscular Volume 85.5 fl (80-100); Platelet Count Result 205 k/mm3 (150-375); Red Cell Distribution Width 12.1 % (11.5-14.5); White Blood Count 7.1 K/mm3 (4.5-10.0)
[2021-03-07 09:39] LABS: Anion Gap 7 mmol/L (8-16); Blood Urea Nitrogen 19 mg/dL (9-20); Calcium 9.3 mg/dL (8.4-10.2); Carbon Dioxide 27 mmol/L (22-30); Chloride 101 mmol/L (98-107); Estimated CRCL calculation 72 ml/min; Estimated Glomerular Filt Rate > 60; Glucose 104 mg/dL (65-110); Potassium 3.9 mmol/L (3.4-5.0); Sodium 135 mmol/L (137-145)
--- NOTE | 2021-03-07 11:14 | WPDCARDPROC ---
Cardiac Cath Procedure Note Date of procedure:: 03/07/21 Performing physician:: Horace Plaza MD Date of service 03/07/2021 Indication:: abnormal stress test Brief clinical history:: 60-year-old patient with no significant past medical history except for recent diagnosis of prostate cancer. He is to undergo radical prostatectomy. Underwent stress test that was abnormal and therefore given that this surgery moderate to high risk we decided to bring him here to define coronary anatomy. Procedure Procedure performed:: 1-Moderate sedation that started at 10:51 a.m.and ended at 11:11 a.m. total duration 20 minutes using 2mg of Versed and 50mcg fentanyl. The registered nurse was shanel ortiz. 2-Selective left and right coronary angiogram. 3-Left heart catheterization with measurement of LVEDP and measurement of gradient across aortic valve. 4-Right common femoral arterial angiogram. 5-Deployment of 6 [place] Angio-Seal. Sedation/Medication given:: Moderate sedation. Access site:: Right common femoral artery. Estimated blood loss:: 10cc Procedure note:: After informed consent patient was brought in to director of labor and delivery with the was draped and prepped in usual manner. Moderate sedation was given and the right groin was infiltrated using 1% lidocaine. Five [place] sheath was obtained using micropuncture needle and the modified Seldinger technique. Selective left coronary angiogram was done using JL4 catheter with the tip of the catheter placed in the left main coronary artery. Selective right coronary angiogram was done using JR4 catheter with the tip of the catheter placed to the right coronary artery. After that 5 [place] pigtail catheter was advanced across the aortic valve into the left ventricle with measurement of LVEDP and measurement of gradient across aortic valve. Right common femoral arterial angiogram was done. Findings:: 1- left coronary artery is a large artery that divides into large LAD, large circumflex artery. Left main is free of disease 2- left anterior descending artery is a large artery that runs and wraps around the apex. free of disease. Medium-size diagonal branch free of disease 3- leftcircumflex artery is a large artery free of disease. large OM1 free of disease 4- right coronary artery is large artery the well and free of disease 5- LVEDP was 7 mm Hgand no gradient across aortic valve. 6- opening arterial pressure was 160/70 and closing pressure was 140/80 7- right femoral artery angiogram shows no significant disease in the right common femoral artery. Conclusion:: no CAD Assessment and Plan Additional Plan may proceed with the plan for radical prostatectomy
--- NOTE | 2021-03-07 11:17 | WPDHPUPDATE1 ---
History and Physical Update Update Date/Time: 03/07/21 11:17 History and Physical has been reviewed, including an updated exam of the patient. There are NO changes in the patient's condition. Risks, benefits, and alternatives have been discussed and questions answered. Patient agrees to proceed with procedure.
--- NOTE | 2021-03-07 11:17 | WPDMODSED ---
Moderate Sedation Note-Pt Data Patient Data Allergies Allergy/AdvReac Type Severity Reaction Status Date / Time diclofenac AdvReac Mild stomach Verified 02/25/21 11:39 upset Home Medications Medication Instructions Recorded Confirmed Type acetaminophen [Tylenol] 650 mg PO PRN 03/07/21 03/07/21 History naproxen 250 mg PO PRN PRN 03/07/21 03/07/21 History vitamins A,C,E-nzrb-qnpkae 1 cap PO DAILY 03/07/21 03/07/21 History [PreserVision AREDS] Current Medications: Active Medications Sodium Chloride (Normal Saline Iv) 500 mls @ 100 mls/hr IV CONT .Q5H TIM Sedation/Anesthesia: No previous sedation/anesthesia problems (including family history). [facility] Past Medical History Medical History Arthritis of lumbar spine Bilateral cataracts early/maturing cataracts Bronchitis due to 2018- Carpal tunnel syndrome, left Inguinal hernia bilateral fat containing inguinal hernias noted on imaging 11/26/2019 Renal stones Ureterolithiasis (~11/26/19) Surgical History Surgical History H/O cervical spine surgery C4 through C7 ACDF fall 2012 due to severe cervical stenosis from disc bulge at C4-C5 Family History Family History Mother Alzheimers disease Father Malignant neoplasm of prostate Social History Social History Social History: Primary care physician: Dr. Tano Schmitz Alcohol intake: current Alcohol use details: the patient drinks 1 alcoholic beverage a month on average. Substance use: never Additional living arrangements comments: He lives with his of 34 years. and 1 adult daughter who is scheduled to be admitted to deliver twins in a couple of days. 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 Gender identity (if verbalized by the patient): Male Spiritual care concerns: No Mod Sed Physical Exam Physical Exam Pre Procedural Exam: Normal: Appearance, Eyes, Ears, Nose, Neck, Throat, Airway, Lungs, Heart Size, Heart Rate, Heart Rhythm, Neuro Exam, Abdomen, Liver, Kidneys, Spleen, Breasts, Genitalia, Extremities and Skin Hours since solid foods: 8 Hours since liquid intake: 8 Mallampati Classification: class 1 Internal Medicine - PN: Obj Da Vital Signs Vital Signs: Vital Signs - 24 hr 03/07/21 09:25 Temperature 35.9 C L Pulse Rate 60 Respiratory Rate 10 L Blood Pressure 143/76 H Pulse Oximetry 98 Meds/Results Medications: Active Medications Generic Name Dose Route Start Last Admin Trade Name Diaz PRN Reason Stop Dose Admin Sodium Chloride 500 mls @ 100 mls/hr 03/07/21 09:00 Normal Saline Iv IV CONT .Q5H TIM Labs CBC & Chem 7: 03/07/21 09:19 03/07/21 09:19 Labs: Laboratory Results - last 24 hr 03/07/21 03/07/21 09:19 09:19 WBC 7.1 RBC 5.10 Hgb 15.1 Hct 43.6 MCV 85.5 MCH 29.6 MCHC 34.6 RDW 12.1 Plt Count 205 MPV 10.0 Sodium 135 L Potassium 3.9 Chloride 101 Carbon Dioxide 27 Anion Gap 7 L BUN 19 Creatinine 1.00 Estim Creat Clear Calc 72 Estimated GFR > 60 Glucose 104 Calcium 9.3 ASA Classification/Sedation ASA Classification/Sedation ASA Class: I Emergent: No Risks: Risks, benefits and alternatives explained and patient/family accepted plan for sedation. Patient re-evaluated immediately prior to sedation.
--- NOTE | 2021-03-07 14:54 | SUR.PHASEII ---
1430-discharge instruction reviewed with pt and . Verbalized understanding, IV removed. Pt escorted off floor via wheelchair.
== END 2021-03-07 14:45 | disposition home or self-care (01) ==
PROVIDERS: PCP Family Medicine; Visit Provider Internal Medicine Cardiovascular Disease
PROC: 4A023N7 Measurement of Cardiac Sampling and Pressure, Left Heart, Percutaneous Approach (ICD-10-PCS; CPT 93452; principal; 2021-03-07 10:30)
DX: Z01.810 Encounter for preprocedural cardiovascular examination (principal); R94.39 Abnormal result of other cardiovascular function study; C61 Malignant neoplasm of prostate
CPT/HCPCS: 36415; 78452; 80048; 85027; 93017; 93458; A9502; C1760; C1887; C1894; G0269; J1644; J2250; J2785; J3010; J7040

== ENCOUNTER 2021-03-28 19:30 | Emergency (ER) | payer BC, SELFPAY ==
[2021-03-28 20:06] VITALS: BP 148/85; PULSE 92; RESP 18; TEMP 36.6; O2SAT 99
--- NOTE | 2021-03-28 23:25 | PC.NURSE ---
no answer for room.
== END 2021-03-29 02:36 | disposition left against medical advice (07) ==
LOC: ANHED 23:47
DX: Z53.21 Procedure and treatment not carried out due to patient leaving prior to being seen by health care provider (principal)
CPT/HCPCS: 99199

== ENCOUNTER → 2022-04-03 09:07 | Outpatient (CLI) | payer BC, SELFPAY ==
--- NOTE | ~2022-04-03 | MR_ITS ---
MRI of the left hip Clinical history: Trochanteric bursitis Technique: Coronal T1-weighted, T2-weighted, and proton-density fat-sat images, and axial T1-weighted and proton-density fat-sat images were acquired through the pelvis. Coronal T2-weighted images and c oronal, axial, and sagittal proton-density fat-sat images were acquired through the left hip. Findings: There is no fracture, avascular necrosis, or transient osteoporosis of either hip. No suspi cious or acute bone marrow signal abnormality identified. There is moderate osteoarthritis of both hip joints, with femoral head neck junction osteophyte forma tion bilaterally and probable mild superior chondromalacia changes. Small bilateral hip joint effusio ns are present. No distinct evidence for trochanteric bursitis. No muscle atrophy or edema evident about the pelvis. Visualized tendons appear intact. IMPRESSION: Moderate bilateral hip joint osteoarthritis with associated small bilateral hip joint effusions. No evidence for trochanteric bursitis. Reviewed, dictated and finalized at location [] TING AND PUMPING SUPERVISOR
== END ==
PROVIDERS: PCP Family Medicine; Visit Provider Nurse Practitioner
DX: M70.62 Trochanteric bursitis, left hip (principal); M16.0 Bilateral primary osteoarthritis of hip
CPT/HCPCS: 73721

== ENCOUNTER → 2023-04-03 10:21 | Outpatient (CLI) | payer BC, SELFPAY ==
--- NOTE | ~2023-04-03 | XR_ITS ---
Clinical Indication: Preoperative clearance PA and lateral views of the chest: Comparison: 02/27/2021 Findings: The lungs are clear, without evidence of focal consolidation or pleural effusion. Cardiome diastinal silhouette is within normal limits. Bones and soft tissues are unremarkable. Impression: Normal chest. Reviewed, dictated and finalized at location . STICK MAN Impression: Normal chest.
== END ==
PROVIDERS: Visit Provider Family Medicine
DX: Z01.818 Encounter for other preprocedural examination (principal)
CPT/HCPCS: 71046

== ENCOUNTER 2023-06-16 09:10 | Emergency (ER) | payer BC, SELFPAY ==
[2023-06-16] VITALS (7 sets, daily range): BP systolic 132–171; BP diastolic 78–102; PULSE 67–88; RESP 16; TEMP 36.6–37; O2SAT 100
--- NOTE | ~2023-06-16 | XR_ITS ---
EXAMINATION: XR chest 2V DATE: 06/16/2023 10:08 INDICATION: Weakness and dizziness TECHNIQUE: AP and lateral views of the chest are obtained. COMPARISON: 03/24/2023 FINDINGS: The lungs are free of acute opacities. No pleural effusion or pneumothorax. The cardiomedia stinal silhouette is normal. There is moderate thoracic spondylosis. Surgical changes are noted in th e lower cervical spine. IMPRESSION: 1. No acute cardiopulmonary abnormality. Reviewed, dictated and finalized at location L. ARE ANALYST
--- NOTE | ~2023-06-16 | CT_ITS ---
Non-contrast Head CT History: Trauma, vertigo COMPARISON: 02/27/2021 Technique: Axial non-contrast imaging of the brain was performed. Dose reduction technique was used on this scan by utilizing automated exposure control and iterative reconstruction technique. The dose -length product (DLP) was 605.33 mGy-cm. Findings: There is no evidence of intracranial hemorrhage, mass lesion, or acute infarct. Brain par enchyma appears normal. The ventricles and subarachnoid spaces are normal in size. The calvarium ap pears normal. The visualized paranasal sinuses and mastoid air cells are clear. Impression: No significant abnormality seen. Reviewed, dictated and finalized at location . MASTER Impression: No significant abnormality seen.
--- NOTE | 2023-06-16 09:15 | ECG_ITS ---
Measurements Intervals [place] Rate: 71 P: 32 MN: 157 QRS: -78 QRSD: 93 T: 111 QT: 345 QTc: 375 Interpretive Statements SINUS RHYTHM INCOMPLETE RIGHT BUNDLE BRANCH BLOCK [90+ ms QRS DURATION, TERMINAL R IN V1/V2, 40+ ms S IN I/aVL/V4/V5/V6] LEFT ANTERIOR FASCICULAR BLOCK [QRS AXIS <= -45, QR IN I, RS IN II] NONSPECIFIC T-WAVE ABNORMALITY ABNORMAL ECG COMPARED TO ECG 02/27/2021 10:05:20 NO DIFFERENCE Electronically Signed On 06-16-2023 15:37:01 RN BABY by Tano Holt M.D.
[2023-06-16 09:32] LABS: Basophils Percent Auto 0.3 % (0.2-1.2); Eosinophils Percent Auto 0.2 % (0-4.4); Hematocrit 44.1 % (42.0-52.0); Hemoglobin 14.7 g/dL (14.0-18.0); Immature Granulocyte Absolute 0.07 K/mm3 (0.00-0.031); Immature Granulocyte Percent A 0.5 % (0-0.5); Lymphocytes Absolute Auto 1.35 K/mm3 (0.9-3.2); Lymphocytes Percent Auto 10.2 % (18.3-44.2); Mean Corpuscular HGB Conc 33.3 g/dl (32-36); Mean Corpuscular Hemoglobin 28.7 pg (26-34); Mean Platelet Volume 9.9 fl (7.4-10.4); Monocytes Absolute Auto 0.7 K/mm3 (0.1-0.6); Monocytes Percent Auto 5.1 % (2.6-8.5); Neutrophils Absolute Auto 11.1 K/mm3 (1.3-6.7); Neutrophils Percent Auto 83.7 % (45.5-73.1); Platelet Count Result 222 k/mm3 (150-375); Red Blood Count 5.13 M/mm3 (4.6-6.20); Red Cell Distribution Width 13.2 % (11.5-14.5); White Blood Count 13.3 K/mm3 (4.5-10.0)
[2023-06-16 09:42] LABS: Alanine Aminotransferase 25 U/L (6-50); Albumin Level 4.5 g/dL (3.5-5.1); Alkaline Phosphatase 75 U/L (38-126); Anion Gap 8 mmol/L (8-16); Aspartate Amino Transferase 33 U/L (17-59); Bilirubin,Total 0.8 mg/dL (0.2-1.3); Blood Urea Nitrogen 21 mg/dL (9-20); Calcium 9.5 mg/dL (8.4-10.2); Carbon Dioxide 24 mmol/L (22-30); Chloride 105 mmol/L (98-107); Estimated Glomerular Filt Rate > 60; Glucose 135 mg/dL (65-110); Potassium 3.9 mmol/L (3.4-5.0); Sodium 137 mmol/L (137-145)
[2023-06-16 09:56] LABS: Troponin I < 0.012 ng/mL (0.000-0.034)
[2023-06-16 10:08] LABS: Influenza A QL RT-PCR Negative (Negative); Influenza B QL RT-PCR Negative (Negative); RSV RNA, RT-PCR Negative (Negative); SARS-CoV-2 RNA PCR Negative (Negative)
[2023-06-16 10:14] LABS: Add Urine Microscopic? YES; Appearance Urine Clear (Clear); Bacteria Urine None Seen /hpf; Bilirubin Urine Negative (Negative); Blood Urine Trace (Negative); Color Urine Yellow (Yellow); Glucose Urine UA Negative (Negative); Hyaline Casts Urine Present /lpf; Ketones Urine Trace mg/dL (Negative); Leukocyte Esterase Ur Negative LEU/UL (Negative); Need Manual Microscopic Reviewed; Nitrate Urine Negative (Negative); Protein Urine 1+ mg/dL (Negative); Specific Grav Ur 1.026 (1.001-1.035); Squamous Epithelial Cell Urine None seen /hpf (Few); WBC Urine 0-5 /hpf
--- NOTE | 2023-06-16 10:37 | ED.DIZZY ---
HPI - Dizziness General Chief Complaint: Dizziness Stated Complaint: weak, L abd pain, L hip pain History of Present Illness HPI Narrative: 62-year-old male presenting to the emergency department for evaluation for onset dizziness. Patient states when he was getting out of bed this morning he had some dizziness with associated nausea. Patient states he felt lightheaded and sweaty at the moment. Patient said he slid down on the floor but denies any pain or injury. Patient denies striking his head. Patient suspects he did have a brief loss of consciousness. Upon arrival emergency department patient denies any pain or complaint. Patient states he does still have some dizziness which she states feels like a sensation of movement when he opens his eyes. Related Data Home Medications Medication Instructions Recorded Confirmed vitamins A,C,U-evjk-yxhrds 4,296 1 cap PO DAILY 03/07/21 03/19/23 mcg-226 mg-90 mg capsule (PreserVision AREDS) sildenafil 100 mg tablet 100 mg PO DAILY PRN Erectile 01/30/22 03/19/23 Dysfunction Allergies Allergy/AdvReac Type Severity Reaction Status Date / Time diclofenac AdvReac Mild stomach Verified 04/01/23 10:59 upset Review of Systems Review of Systems: All systems reviewed & are unremarkable except as noted in HPI and below [facility] Past Medical History Medical History (Updated 06/16/23 @ 12:31 by Austen Chavez MD) Arthritis of left hip Arthritis of lumbar spine Bilateral cataracts early/maturing cataracts Bronchitis due to 2019-nCoV Carpal tunnel syndrome, left Degenerative arthritis of knee, bilateral Inguinal hernia bilateral fat containing inguinal hernias noted on imaging 11/26/2019 Lumbar back pain with radiculopathy affecting left lower extremity Renal stones Ureterolithiasis (~11/26/19) Surgical History Surgical History (Updated 06/12/23 @ 12:28 by Tano Schmitz MD) H/O cervical spine surgery C4 through C7 ACDF fall 2012 due to severe cervical stenosis from disc bulge at C4-C5 H/O radical prostatectomy History of total left hip replacement Family History Family History Mother Alzheimers disease Father Malignant neoplasm of prostate Other Cerebrovascular accident Social History Social History Social History: Primary care physician: Dr. Tano Schmitz Smoking status: Never smoker Alcohol intake: current Alcohol use details: 2 drinks monthly Substance use: never Substance use type: does not use Lack of Transportation: No Lack of Food: Never True Current Housing: I Have Housing Concerned About Future Housing: No Difficulty Paying Gas/Electric Bills: No Difficulty Paying for Meds: No Currently Unemployed: No Education: Bachelor's Degree Difficulty w/ Childcare or Family Care: No Living arrangements: with family Additional living arrangements comments: He lives with his of 34 years. and 1 adult daughter who is scheduled to be admitted to deliver twins in a couple of days. 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 Gender identity (if verbalized by the patient): Male Spiritual care concerns: No Exam Narrative: APPEARANCE: Well appearing, no pain, no distress, well-nourished. HEAD: normocephalic, atraumatic. EYES: PERRLA/EOMI, conjunctivae clear. NOSE: Normal no drainage EARS:TMS clear with good light reflex. THROAT: Pharynx clear, no exudate. NECK: Supple. No adenopathy, no masses. RESPIRATORY: Airway patent, respirations nonlabored. Clear to auscultation bilaterally, no rales, rhonchi, wheezing. CARDIOVASCULAR: Regular rate and rhythm without murmurs rubs or gallops. ABDOMINAL: Soft, nontender, nondistended, normal bowel sounds MUSCULOSKELETAL: Moves all extremities. Str
[2023-06-16] MEDS: MECLIZINE HCL 25 MG TABLET PO (10:58)
--- NOTE | 2023-06-16 12:27 | PC.NURSE ---
Reports dizziness improved and ambulated in rose without difficulty, gait steady.
== END 2023-06-16 12:37 | disposition home or self-care (01) ==
PROVIDERS: Emergency Provider Emergency Medicine
DX: R42 Dizziness and giddiness (principal); M16.12 Unilateral primary osteoarthritis, left hip; M17.0 Bilateral primary osteoarthritis of knee; H26.9 Unspecified cataract; M47.816 Spondylosis without myelopathy or radiculopathy, lumbar region; Z96.642 Presence of left artificial hip joint; Z87.442 Personal history of urinary calculi; Z90.79 Acquired absence of other genital organ(s); I45.2 Bifascicular block
CPT/HCPCS: 36415; 70450; 71046; 80053; 81001; 84484; 85025; 87637; 93005; 99284; A9270

== ENCOUNTER 2024-03-07 11:05 | Outpatient (CLI) | payer OTHER, BC, SELFPAY ==
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
== END 2024-03-07 11:06 | disposition home or self-care (01) ==
PROVIDERS: PCP Family Medicine; Visit Provider Nurse Practitioner Family
DX: M48.02 Spinal stenosis, cervical region (principal); V49.40XA Driver injured in collision with unspecified motor vehicles in traffic accident, initial encounter
CPT/HCPCS: 72125

== ENCOUNTER 2024-12-09 08:48 | Outpatient (CLI) | payer MEDICARE, SELFPAY ==
--- OUTSIDE RECORDS SUMMARY | 2024-12-09 08:53 | XMS_ITS | Clinical Summary ---
Author Organization [facility] Address [facility] [place] [address] Care Team Providers Care Steel Unloader Name Role Phone Unavailable Primary Care Provider Unavailabl e Social History Tobacco Use Types Packs/Day Years Used Date Smoking Tobacco: Never Assessed Sex and Gender Information Value Date Recorded Sex Assigned at Not on file Legal Sex Male 8:47 PM CDT Gender Identity Not on file Sexual Orientation Not on file Plan of Treatment Health Maintenance Due Date Last Done Comments Colorectal Cancer Screening Colonoscopy (10 Years) 1958 Hepatitis C 1976 DTaP, Tdap and Td Vaccines ( 1 - Tdap) 1977 Pneumococcal Vaccine: 50+ Ye ars (1 of 1 - PCV) 2008 Zoster Vaccines (1 of 2) 2008 COVID-19 Vaccine ( - 2023-2 5 season) 2023 RSV Immunization or 60+ Years (1 - 1-dose 75+ series) 2033 Meningococcal B Vaccine Aged Out No l onger eligible based on patient's age to complete this topic Meningococcal Vaccine Aged Out No golden tres eligible based on patient's age to complete this topic RSV Immunizations Under 20 Months Aged Out No longer eligible based on patient's age to complete this topic
--- OUTSIDE RECORDS SUMMARY | 2024-12-09 08:53 | XMS_ITS | Clinical Summary ---
Author Organization [facility] Address [address] [place] [address] Phone Care Team Providers Care Multiple Spindle Router Operator Name Role Phone Tano Schmitz MD Primary Care Provider [phone] Allergies No known active allergies Medications oxyCODONE-acetam inophen (PERCOCET) 5-325 mg Oral tablet Take 1-2 Tabs by mouth every 4 hours as needed for Pain (For Pain Scale 4-6). 150 Tab 0 01/28/2013 Active diazepam (VALIUM) 5 mg Oral tablet Take 1 Tab by mouth every 6 hours as needed for Spasm. 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 Gender Identity Not on file Sexual Orientation Not on file Last Filed Vital Signs Vital Sign Reading Time Taken Comments Blood Pressure 128/71 01/28/2013 1:35 PM CDT Pulse 81 01/28/2013 1:35 PM CDT Temperature 36.7 C (98.1 F) 01/28/2013 1:35 PM CDT Respiratory Rate 18 01/28/2013 1:35 PM CDT Oxygen Saturation 97% 01/28/2013 1:35 PM CDT Inhaled Oxygen Concentration - - Weight 93.6 kg (206 lb 6 oz) 01/27/2013 2:18 PM CDT Height 182.9 cm (6') 01/27/2013 2:18 PM CDT Body Mass Index 27.99 01/27/2013 2:18 PM CDT Plan of Treatment Health Maintenance Due Date Last Done Comments DTAP/TDAP/TD VACCINES (1 - Tdap) 1977 COLORECTAL SCREENING 06/26/2003 Colorectal Cancer Screening 06/26/2003 FIT-DNA Q 3 years 06/26/2003 FIT/FOBT Q 1 year 06/26/2003 Flex Sig/CT Colonography Q 5 years 06/26/2003 PNEUMOCOCCAL VACCINE 50+ YEARS (1 of 1 - PCV) 06/26/19 09 ZOSTER VACCINE (1 of 2) 2008 INFLUENZA VACCINE (#1) 2024 RSV VACCINE (60+ or ) (1 - 1-dose 75+ series) 2033 Medical Devices Implanted Type Area Room Service Waiter Device Identifier Shelf Expiration Date Model / Serial / Lot Plate Hybrid Ant Cerv 3lvl [id number] - [id number] Implanted:Qty : 1 on 01/27/2013 at [facility] Plate N/A: Spine Cervical Anterior MIKE- SPINE [id number] / / Description:LOAD 38JANUARY 20, [address] 4.0x14mm [id number] - [id number] Implanted:Qty : 2 on 01/27/2013 at [facility] Screw N/A: Spine Cervical Anterior MIKE- SPINE [id number] / / Description:LOAD 38JANUARY 20, [address] 4.0x14mm [id number] - [id number] Implanted:Qty : 6 on 01/27/2013 at [facility] Screw N/A: Spine Cervical Anterior MIKE- SPINE [id number] / / Description:LOAD 38JANUARY 20, 2013 Sealant Floseal W/ Adptr 10ml [id number] - [id number] Implanted:Qty : 1 on 01/27/2013 by Fina Dominique MD at [facility] Sealant N/A: Spine Cervical Anterior MCCLAIN- BIOSCIENCE 03/19/2014 [id number] / / [id number] Bio Avs C-Plug 4 Deg 7mm Implanted:Qty : 1 on 01/27/2013 by Fina Dmoinique MD at [facility] Spacer N/A: Spine Cervical Anterior MIKE- SPINE 09/23/2017 [id number] / [id number] / Bio Avs C-Plug 4 Deg 7mm Implanted:Qty : 1 on 01/27/2013 by Fina Dominique MD at [facility] Spacer N/A: Spine Cervical Anterior MIKE- SPINE 03/23/2017 [id number] / [id number] / Bio Avs C-Plug 4 Deg 7mm Implanted:Qty : 1 on 01/27/2013 by Fina Dominique MD at [facility] Spacer N/A: Spine Cervical Anterior MIKE- SPINE 05/30/2017 [id number] / [id number] / Insurance [employer] BLUE ACCESS/TRUE BLUE PPO Advance Directives For more information, please contact: [phone] * Full Code (Latest Code Status on File) Date Activated Date Inactivated Comments 01/27/2013 2:09 PM 01/28/2013 5:21 PM * Full Code Date Activated Date Inactivated Comments 01/27/2013 5:53 AM 01/27/2013 2:09 PM Care Teams Multiple Spindle Router Operator Relationship Specialty Start Date End Date Tano Schmitz MD PCP - General Family Practice 12/31/12
--- OUTSIDE RECORDS SUMMARY | 2024-12-09 08:53 | XMS_ITS | Clinical Summary ---
Author Organization [facility] Address [address] [place] [address] Care Team Providers Care Manager Agricultural Name Role Phone Tano Schmitz MD Primary Care Provider [phone] Cristiano Garcia MD Unavailable [phone] Allergies No known active allergies Medications diphenhydrAMINE (Unisom SleepGels) 50 mg capsule Take 50 mg by mouth nightly as needed for sleep Active traZODone (DESYREL) 100 mg tablet Take 100 mg by mouth nightly 03/28/2021 Active Active Problems Problem Noted Date Diagnosed Date Prostate cancer 03/25/2021 Abnormal EKG 03/01/2021 Overview (03/01/2021): Added automatically from request for surgery [id number] Abnormal stress test 03/01/2021 Overview (03/01/2021): Added automatically from request for surgery [id number] Preoperative testing 03/01/2021 Overview (03/01/2021): Added automatically from request for surgery [id number] Surgical History Surgery Date Site/Laterality Comments SPINE SURGERY 04/20/2012 - 04/19/2013 cervical disc replacement Medical History Medical History Date Comments Hypertension Prostate cancer (HCC) Family History Medical History Relation Name Comments Bone cancer Father Prostate cancer Father Relation Name Status Comments Father Social History Tobacco Use Types Packs/Day Years Used Date Smoking Tobacco: Never Smokeless Tobacco: Never AUDIT-C Answer Date Recorded Q1: How often do you have a drink containing alc ohol? Never 02/22/2021 Average Number of Drinks Not on file 021 Q3: How often do you have si x or more drinks on one occasion? 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 Gender Identity Not on file Sexual Orientation Not on file Obstetrics History Last Filed Vital Signs Vital Sign Reading Time Taken Comments Blood Pressure 142/78 04/05/2021 9:29 AM PAYROLL HUMAN RESOURCES ASSISTANT Pulse 75 04/05/2021 9:29 AM PAYROLL HUMAN RESOURCES ASSISTANT Temperature 37.1 C (98.7 F) 03/26/2021 12:21 PM PAYROLL HUMAN RESOURCES ASSISTANT Respiratory Rate 20 03/26/2021 12:21 PM PAYROLL HUMAN RESOURCES ASSISTANT Oxygen Saturation 98% 04/05/2021 9:29 AM PAYROLL HUMAN RESOURCES ASSISTANT Inhaled Oxygen Concentration - - Weight 93.3 kg (205 lb 9.6 oz) 04/05/2021 9:29 A M PAYROLL HUMAN RESOURCES ASSISTANT Height 180.3 cm (5' 11) 04/05/2021 9:29 AM PAYROLL HUMAN RESOURCES ASSISTANT Body Mass Index 28.68 04/05/2021 9:29 AM PAYROLL HUMAN RESOURCES ASSISTANT Plan of Treatment Not on file Insurance [employer] [facility] Advance Directives For more information, please contact: [phone] * Full Code (Latest Code Status on File) Date Activated Date Inactivated Comments 03/25/2021 3:43 PM 03/26/2021 8:37 PM Care Teams Manager Agricultural Relationship Specialty Start Date End Date Tano Schmitz MD PCP - General Family Medicine 02/21/21 [place] [address] [place] [address] Consulting Physician Urology 03/26/21
[2024-12-09 13:24] LABS: Hematocrit 44.5 % (42.0-52.0); Hemoglobin 14.9 g/dL (14.0-18.0); Immature Granulocyte Percent A 0.4 % (0-0.5); Lymphocytes Absolute Auto 1.48 K/mm3 (0.9-3.2); Mean Corpuscular HGB Conc 33.5 g/dl (32-36); Mean Corpuscular Hemoglobin 29.6 pg (26-34); Mean Corpuscular Volume 88.5 fl (80-100); Nucleated Red Blood Cells Absolute Auto 0.000 K/mm3 (0.0-0.012); Nucleated Red Blood Cells Perc 0.0 % (0.0-0.2); Platelet Count Result 200 k/mm3 (150-375); Red Blood Count 5.03 M/mm3 (4.6-6.20); White Blood Count 6.8 K/mm3 (4.5-10.0)
[2024-12-09 13:32] LABS: Alanine Aminotransferase 19 U/L (6-50); Albumin Level 4.3 g/dL (3.5-5.1); Alkaline Phosphatase 52 U/L (38-126); Anion Gap 8 mmol/L (4-12); Aspartate Amino Transferase 37 U/L (17-59); Bilirubin,Total 0.6 mg/dL (0.2-1.3); Blood Urea Nitrogen 19 mg/dL (9-20); Calcium 9.1 mg/dL (8.4-10.2); Carbon Dioxide 25 mmol/L (22-30); Chloride 104 mmol/L (98-107); Cholesterol 203 mg/dL (0-200); Estimated Glomerular Filt Rate > 60; Glucose 93 mg/dL (65-110); HDL Direct 62 mg/dL; Potassium 3.8 mmol/L (3.4-5.0); Sodium 137 mmol/L (137-145); Total Protein 7.2 g/dL (6.3-8.2); Triglycerides 83 mg/dL (<150)
[2024-12-09 14:03] LABS: Thyroid Stimulating Hormone 1.750 uIU/mL (0.465-4.680)
== END 2024-12-09 08:49 | disposition home or self-care (01) ==
LOC: ANHGOSHLAB 08:51
PROVIDERS: PCP Family Medicine; Visit Provider Nurse Practitioner Family
DX: M25.50 Pain in unspecified joint (principal); E66.3 Overweight; I10 Essential (primary) hypertension; E78.5 Hyperlipidemia, unspecified
CPT/HCPCS: 36415; 80053; 80061; 84443; 85025